=== PATIENT | female | born 1960 | race Caucasian/White ===

== ENCOUNTER 2016-08-24 05:00 | Emergency (ER) | payer BC ==
[~2016-08-24] VITALS: Ht 160 cm; Wt 81.5 kg
[~2016-08-24 05:00] MED LIST: AMARYL2 MG PO; ATIVAN0.5 MG PO; AUGMENTIN875 MG PO; BENICAR HCT 201 EACH PO; CRESTOR10 MG PO; CYCLOBENZAPRINE5 MG PO; DILAUDID2 MG PO; ESTROVEN MAX1 TABLET PO; FLAX OIL1000 MG PO; FLEXERIL5 MG PO; GLUCOPHAGE1000 MG PO; JANUVIA25 M1 PO; LEXAPRO10 MG PO; LOSARTAN-HCTZ1 EACH PO; METRONIDAZOLE500 MG PO; ONE DAILY FOR1 EAC3 PO; PHENERGAN-CODE120 ML PO; PROBIOTIC FORM1 EACH PO; PROBIOTIC250 MG PO; SIMVASTATIN20 MG PO; TESSALON PERLE100 MG PO; VALIUM5 MG PO; VICODIN,LORT1 TABLET PO; VISION PLUS LU1 EACH NG; ZINC50 M2 PO
[2016-08-24 05:31] LABS: BASOPHIL COUNT 0.1 K/uL (0-0.1); EOSINOPHIL (%) 2.3 % (0-5); EOSINOPHIL COUNT 0.3 K/uL (0-0.3); HEMATOCRIT 44.3 % (36.0-46.0); IMMATURE GRANULOCYTE (%) 0.4 % (0.0-0.7); INSTRUMENT ABS NEUTROPHIL CT 8.2 K/uL; LYMPHOCYTE COUNT 1.6 K/uL (1.0-2.8); MCH 28.8 PG (29.0-34.0); MCHC 33.4 G/DL (30.0-36.0); MCV 86.4 FL (83-99); MEAN PLAT.VOLUME 8.9 uM^3 (9.5-12.4); MONOCYTE (%) 8.4 % (3-12); MONOCYTE COUNT 0.9 K/uL (0-0.8); NEUTROPHIL (%) 73.7 % (45-76); NEUTROPHIL COUNT 8.2 K/uL (1.8-6.4); PLATELET COUNT 272 K/uL (156-360); RBC DIS.WIDTH-CV 13.1 % (11.8-14.6); RED BLOOD COUNT 5.13 M/uL (3.80-5.20); WHITE BLOOD COUNT 11.1 K/uL (4.1-10.2)
[2016-08-24 05:41] LABS: CHLORIDE 105 mEq/L (99-109); POTASSIUM 3.8 mEq/L (3.7-5.4); SODIUM 137 mEq/L (136-147)
[2016-08-24 05:44] LABS: GLUCOSE 212 mg/dL (70-99)
[2016-08-24 05:45] LABS: ANION GAP 11 MEQ/L (2-14)
[2016-08-24 05:46] LABS: TOTAL BILIRUBIN 0.4 mg/dL (0.0-1.0)
[2016-08-24 05:47] LABS: ALKALINE PHOSPHATASE 78 IU/L (3-129); GFR ESTIMATE (CALCULATED) > 59 mL/min/
[2016-08-24 05:48] LABS: UREA NITROGEN (BUN) 14 mg/dL (9-23)
[2016-08-24 05:51] LABS: LIPASE 89 U/L (1.0-51.0)
[2016-08-24 05:56] LABS: QUANTITATIVE HCG < 4.0 MIU/ML
[2016-08-24 07:03] LABS: ADD MIUA? YES; BILIRUBIN NEGATIVE; BLOOD NEGATIVE; COLOR YELLOW ((YELLOW)); GLUCOSE (STRIP) >=500; KETONES NEGATIVE; LEUKOCYTES MODERATE; NITRITE NEGATIVE; PROTEIN (STRIP) NEGATIVE; UROBILINOGEN 0.2 MG/DL (0.2-1.0)
[2016-08-24 07:24] LABS: BACTERIA NONE SEEN /HPF; EPITHELIAL CELLS RARE /HPF; MUCUS NONE SEEN /LPF; RED BLOOD CELLS 0-5 /HPF (0-5); UCUL ADDED? NO
[2016-08-24] MEDS ORDERED: STOOL SOFTENER250 MG PO (10:16)
[2016-08-24] MEDS ORDERED: NORCO 5/3251 TABLET PO (10:16)
[2016-08-24 10:44] VITALS: BP 116/73
== END 2016-08-24 11:18 | disposition home or self-care (01) ==
LOC: EME 05:00
PROVIDERS: Physician Assistant
DX: R10.31 Right lower quadrant pain (principal); K59.00 Constipation, unspecified; R93.8 Abnormal findings on diagnostic imaging of other specified body structures; E11.65 Type 2 diabetes mellitus with hyperglycemia; I10 Essential (primary) hypertension; K21.9 Gastro-esophageal reflux disease without esophagitis; Z79.84 Long term (current) use of oral hypoglycemic drugs
CPT/HCPCS: 72158; 74177; 80053; 81003; 83690; 84702; 85025; 85027; 87086; 99281; 99285; J3010; J7030